=== PATIENT | female | born 1945 | race African-American/Black ===

== ENCOUNTER 2018-03-06 12:21 | Emergency (ER) | payer SELFPAY ==
[~2018-03-06] VITALS: Ht 172.7 cm; Wt 86.0 kg
[2018-03-06] MEDS ORDERED: ERGO400C PO (12:38)
[2018-03-07 02:10] VITALS: BP 141/69
[2018-03-07] MEDS ORDERED: SULFAMETHOXAZOLE/TRIMETHOPRIM 800/160MG TABLET PO ONE (02:15)
== END 2018-03-07 02:10 | disposition home or self-care (01) ==
LOC: ER 12:21
DX: L02.211 Cutaneous abscess of abdominal wall (principal); Z88.0 Allergy status to penicillin; Z88.5 Allergy status to narcotic agent; Z79.899 Other long term (current) drug therapy
CPT/HCPCS: 76705; 99284; Z7610